=== PATIENT | female | born 1960 | race Caucasian/White ===

== ENCOUNTER 2016-11-08 17:27 | Emergency (ER) | payer OTHER ==
[~2016-11-08] VITALS: Ht 65 cm; Wt 85.0 kg
[2016-11-08 18:10] LABS: ABSOLUTE BASOPHIL COUNT 0.1 /CUMM (0.0-0.2); ABSOLUTE EOSINOPHIL COUNT 0.2 /CUMM (0.0-0.7); ABSOLUTE GRANULOCYTE CT 4.8 /CUMM (1.4-6.5); ABSOLUTE MONOCYTE COUNT 0.5 /CUMM (0.10-0.60); BASOPHIL % 1.3 % (0.0-2.0); EOSINOPHIL % 2.7 % (0-5); GRANULOCYTE % 63.2 % (42.2-75.2); HEMATOCRIT 41.3 % (37-47); MEAN CORPUSCULAR VOLUME 84.7 FL (81.0-99.0); MEAN PLATELET VOLUME 7.6 FL (7.4-10.4); PLATELET COUNT 218 /CUMM (130-400); RBC DISTRIBUTION WIDTH 13.3 % (11.5-14.5); RED BLOOD CELL CT 4.88 /CUMM (4.20-5.40); WHITE BLOOD CELL COUNT 7.5 /CUMM (4.8-10.8)
--- NOTE | 2016-11-08 19:26 | ED CARDIAC/CP/PALPITATIONS ---
History of Present Illness General Chief Complaint: Chest Pain Stated Complaint: CP, LEFT SIDED NECK AND ARM PAIN Source: patient Exam Limitations: no limitations Vital Signs & Intake/Output Vital Signs & Intake/Output Vital Signs Date Time Temp Pulse Resp B/P Pulse O2 O2 Flow FiO2 Ox Delivery Rate 11/08 2005 98.6 84 18 134/60 98 Room Air 11/09 1951 97 11/08 1753 97.2 86 20 131/76 97 Room Air Room Air Allergies Coded Allergies: ampicillin (Severe, ANAPHYLAXIS AND RASH/HIVES 11/08/16) Reconcile Medications Albuterol Sulfate (Proair Hfa) 90 MCG HFA.AER.AD 2 PUF INH Q4H PRN ASTHMA ( Reported) Ergocalciferol (Vitamin D2) (Vitamin D2) 50,000 UNIT CAPSULE 1 CAP PO QMON SUPPLEMENT (Reported) Levofloxacin (Levaquin) 750 MG TABLET 1 TAB PO DAILY PNEUMONIA [LORISTA H] (Unknown Strength) (Unknown Dose) PO DAILY BP (Reported) Methylprednisolone. (Medrol) 4 MG TAB.DS.PK 1 DP PO AD INFLAMMATION 6 on day 1 then reduce by one tablet daily until gone Trazodone HCl 50 MG TABLET 1 TAB PO QPM SLEEP (Reported) Triage Note: PT TO ED WITH C/O LEFT CHEST PAIN RADIATING TO UNDER LEFT ARM, EKG DONE FROM [facility]. Triage Nurses Notes Reviewed? yes Onset: Abrupt Duration: SINCE 2 PM TODAY Timing: multiple episodes today Quality/Severity: severe, sharp Location: LEFT CHEST/BREAST Radiation: LEFT SHOULDER/BACK Prior Chest Pain/Card Workup: no prior chest pain HPI: 56 year old female presents to the ER for chief complaint of left sided neck pain radiating to left neck and under the left breast that started at 2 pm today. Positive sweats and cough. Pain lasts a few seconds and is sharp. When it comes on she is short of breath. H/o asthma and lung problems diagnosed in [place]. SHe is a previous smoker. Came from [place] recently. Son states that her brother 3 years ago on this day of a brain tumor and feels that it may be contributing to her presentation today. Past History Travel History Traveled to [place] past 21 day No Medical History Any Pertinent Medical History? see below for history Neurological: NONE EENT: NONE Cardiovascular: hypertension, hyperlipidemia, "WEAK VALVE" Respiratory: asthma Gastrointestinal: NONE Hepatic: NONE Renal: NONE Musculoskeletal: NONE Psychiatric: NONE Endocrine: NONE Blood Disorders: NONE Cancer(s): NONE VENDER/Reproductive: NONE Surgical History Surgical History: none Psychosocial History What is your primary language Czech Tobacco Use: Quit >30 days ago ETOH Use: denies use Illicit Drug Use: denies illicit drug use Family History Comment: BROTHER - BRAIN CANCER 3 YEAR AGO (11/08) Hx Contributory? No Review of Systems Review of Systems Constitutional: Denies: chills, fever. EENTM: Reports: no symptoms. Respiratory: Reports: cough, short of breath, sputum production (GREEN). Cardiovascular: Reports: chest pain, palpitations. GI: Denies: abdominal pain, nausea, vomiting. Genitourinary: Denies: discharge, dysuria. Musculoskeletal: Reports: no symptoms. Skin: Reports: no symptoms. Neurological/Psychological: Reports: no symptoms. Hematologic/Endocrine: Denies: bruising, bleeding, polyuria, polydipsia. Immunologic/Allergic: Denies: splenectomy. All Other Systems: Reviewed and Negative Physical Exam Physical Exam General Appearance: well developed/nourished, alert, awake Head: atraumatic, normal appearance Eyes: Bilateral: normal appearance, PERRL, EOMI. Ears, Nose, Throat: normal pharynx, hearing grossly normal Neck: normal inspection, supple, full range of motion Respiratory: normal breath sounds, no respiratory distress, LEFT CHEST WALL TENDER TO PALPATION Cardiovascular: regular rate/rhythm Peripheral Pulses: 2+ radial (R), 2+ radial (L) Gastrointestinal: normal bowel sounds, soft, non-tender Extremities: normal inspection, normal capillary refill, normal range of motion, no edema Neurologic/Psych: no motor/sensory deficits, awake, alert, oriented x 3 Skin: intact, normal color, warm/dry Core Measures ACS in differential dx? Yes ASA ordered for poss ACS? No-ACS ruled out Severe Sepsis Present: No Septic Shock Present: No Progress Differential Diagnosis: AMI, aortic dissection, costochondritis, musculoskeletal pain, myocarditis, pericarditis, pneumonia, pneumothorax, pulmonary embolism, rib fracture, unstable angina Plan of Care: Orders Procedure Date/time Status LOWER RESPIRATORY CULTURE 11/08 2036 Active Add-on Test (ER Only) 11/09 2035 Active BLOOD CULTURE 11/09 2035 Active RT ED ORDERS 11/08 1934 Active D-DIMER 11/08 1800 Complete TROPONIN LEVEL 11/08 175 Complete COMPREHENSIVE METABOLIC PANEL 11/08 175 Complete CBC WITHOUT DIFFERENTIAL 11/08 1754 Complete EKG 11/08 1728 Active Current Medications Sig/Cinthia Start time Last Medication Dose Stop Time Status Admin Ceftriaxone Sodium 1,000 MG ONCE ONE 11/08 2199 UNVr (Rocephin) 11/08 2200 Laboratory Tests 11/08/16 1800: Anion Gap 12, Estimated GFR > 60, BUN/Creatinine Ratio 15.6, Glucose 100 H, Calcium 9.8, Total Bilirubin 0.5, AST 25, ALT 45, Alkaline Phosphatase 60, Troponin I < 0.01, Total Protein 7.8, Albumin 4.5, Globulin 3.3, Albumin/ Globulin Ratio 1.4, D-Dimer < 200, CBC w Diff NO MAN DIFF REQ, RBC 4.88, MCV 84.7, MCH 28.0, RDW 13.3, MPV 7.6, Gran % 63.2, Lymphocytes % 26.2, Monocytes % 6.6, Eosinophils % 2.7, Basophils % 1.3, Absolute Granulocytes 4.8, Absolute Lymphocytes 2.0, Absolute Monocytes 0.5, Absolute Eosinophils 0.2, Absolute Basophils 0.1, PUBS MCHC 33.0 Microbiology 11/08 2114 BLOOD: Blood Culture - RECD 11/08 2113 BLOOD: Blood Culture - RECD 11/08 2036 LOWER RESP: Respiratory Culture - ORD 11/08 2036 LOWER RESP: Gram Stain - ORD LABS WNL. CXR C/W LLL INFILTRATE. D-DIMER NEGATIVE. WILL FOLLOW UP WITH PCP AFTER OUTPATIENT ABX/STEROID COURSE. D/W SON AT LENGTH. (BERENICE MARIN,EMMANUELLE) Diagnostic Imaging: Viewed by Me: Radiology Read. Discussed w/RAD: Radiology Read. CXR Impression: PATIENT: JAI KOO PRESENT AGE: 56 PATIENT ACCOUNT NO: [id number] : 62 LOCATION: [facility] ORDERING PHYSICIAN: EMMANUELLE NG MD SERVICE DATE: 11/08/16 EXAM TYPE: RAD - XRY-PORTABLE CHEST XRAY EXAMINATION: XR PORTABLE CHEST CLINICAL INFORMATION: Chest pain. COMPARISON: None TECHNIQUE: Portable AP view of the chest was obtained. FINDINGS : Both lungs are expanded with patchy opacity in the left lower lobe retrocardiac area suspicious for underlying infiltrate or atelectasis. The heart size and pulmonary vascularity is normal. No gross bony abnormality seen. IMPRESSION: Suspect left lower lobe retrocardiac area developing infiltrate or atelectasis. DICTATED BY: DEEP COVARRUBIAS MD DATE/TIME DICTATED:11/08/162009 MONUMENT SETTER:TREVER DATE/TIME TRANSCRIBED:11/08/162009 CONFIDENTIAL, DO NOT COPY WITHOUT APPROPRIATE AUTHORIZATION. <Electronically signed in Other Vendor System> SIGNED BY: DEEP COVARRUBIAS MD 11/08/162014 Initial ED EKG: NSR Departure Departure Time of Disposition: 2148 Disposition: HOME OR SELF CARE Condition: Stable Clinical Impression Primary Impression: Pneumonia Secondary Impressions: Chest pain at rest Referrals: OBED MARIN,FERN Gaspar (PCP/Family) Additional Instructions: Use your inhaler every 3-4 hours as needed for breathing. Take the prednisone and levaquin as directed and please follow up with her doctor in the office. Return as needed. Departure Forms: Customer Survey General Discharge Information Prescriptions: Current Visit Scripts Methylprednisolone. (Medrol) 1 DP PO AD #1 DP 6 on day 1 then reduce by one tablet daily until gone Levofloxacin (Levaquin) 1 TAB PO DAILY #7 TAB Critical Care Note Critical Care Note Critical Care Time: non-applicable
--- NOTE | 2016-11-08 20:15 | RADIOLOGY REPORT ---
EXAMINATION: XR PORTABLE CHEST CLINICAL INFORMATION: Chest pain. COMPARISON: None TECHNIQUE: Portable AP view of the chest was obtained. FINDINGS: Both lungs are expanded with patchy opacity in the left lower lobe retrocardiac area suspicious for underlying infiltrate or atelectasis. The heart size and pulmonary vascularity is normal. No gross bony abnormality seen. IMPRESSION: Suspect left lower lobe retrocardiac area developing infiltrate or atelectasis.
[2016-11-08] MEDS ORDERED: VITAMIN D250000 UNIT PO (20:21)
[2016-11-08] MEDS ORDERED: [UNRECOGNIZED DRUG - OTHER] PO (20:21)
[2016-11-08] MEDS ORDERED: TRAZODONE HCL50 M1 PO (20:22)
[2016-11-08] MEDS ORDERED: PROAIR HFA8.5 GM INH (20:22)
[2016-11-08] MEDS ORDERED: MEDROL4 M2 PO (21:52)
[2016-11-08] MEDS ORDERED: LEVAQUIN750 M1 PO (21:52)
[2016-11-08 21:55] VITALS: BP 126/70
== END 2016-11-08 22:09 ==
LOC: ERH 17:27
PROVIDERS: Emergency Medicine
DX: J18.9 Pneumonia, unspecified organism (principal); R07.9 Chest pain, unspecified
CPT/HCPCS: 1263; 87040; 87070; 93005; 93010; 96374; 96375; J0456; J0696; J1885; J2930; J7040